=== PATIENT | male | born 2000 | race Two or more races ===

== ENCOUNTER 2023-10-28 10:30 | Outpatient (CLI) | payer SELFPAY ==
--- NOTE | 2023-10-28 16:05 | XRAY Report ---
PROCEDURE: Finger(s) RT INDICATIONS: CONTUSION OF RIGHT THUMB TECHNIQUE: PA hand, 2 views of the thumb acquired. COMPARISON: None. FINDINGS: Bones: No acute fractures or dislocations. No suspicious bony lesions. Soft tissues: No suspicious soft tissue calcifications. Soft tissue edema is seen in the thumb. IMPRESSION: No acute osseous abnormality. If symptoms persist or there is continued clinical concern, further bernice luation with MRI or CT may be helpful. Reviewed by: Jorge Gloria MD on 10/28/2023 4:03 PM PDT Approved by: Jorge Gloria MD on 10/28/2023 4:03 PM PDT Station ID: [id number]
== END 2023-10-28 10:45 | disposition home or self-care (01) ==
LOC: EDSEX → EDBD → DI.N 10:30
PROVIDERS: ATTEND Physician Assistant
DX: S60.011A Contusion of right thumb without damage to nail, initial encounter (principal)